=== PATIENT | male | born 1995 | race African-American/Black ===

== ENCOUNTER 2020-06-20 11:50 | Emergency (ER) | payer OTHER ==
[~2020-06-20] VITALS: Ht 175.3 cm; Wt 75.0 kg
[2020-06-20] MEDS ORDERED: MUPIROCIN CALCIUM 2% 15 GM CREAM TP ONE (14:30)
[2020-06-20] MEDS ORDERED: IBUPROFEN 600 MG TABLET PO ONE (15:15)
[2020-06-20 15:29] VITALS: BP 129/88
== END 2020-06-20 15:30 | disposition home or self-care (01) ==
LOC: EMS 11:55
DX: S09.90XA Unspecified injury of head, initial encounter (principal); S10.81XA Abrasion of other specified part of neck, initial encounter; Y08.89XA Assault by other specified means, initial encounter; Y93.89 Activity, other specified; Y92.89 Other specified places as the place of occurrence of the external cause; Y99.8 Other external cause status
CPT/HCPCS: 70450; 99284